=== PATIENT | female | born 1990 | race Caucasian/White ===

== ENCOUNTER → 2017-12-04 | Outpatient (CLI) | payer OTHER, BC ==
[~2017-12-04] MED LIST: MULT-506 PO
--- NOTE | 2017-12-04 11:51 | DIAGNOSTIC IMAGING REPORT ---
MRI OF LUMBAR SPINE WITHOUT IV CONTRAST CLINICAL HISTORY: Low back pain. COMPARISON STUDY: No priors. TECHNIQUE: MRI of the lumbar spine is performed utilizing various T1 and T2-weighted sequences in the axial and sagittal planes. IV contrast was not administered for this examination. FINDINGS: Lumbar spine: Vertebral body height and alignment are maintained throughout the lumbar spine. Normal marrow signal intensity is preserved throughout the visualized bony structures. The transverse and spinous processes appear intact. There is no evidence of spondylolysis. Mild hyperlordosis is observed. Intervertebral discs: There is mild degenerative disc desiccation and loss of height at L5-S1. The remaining discs are normal in height and signal intensity. Spinal cord: The visualized spinal cord is normal in morphology and signal intensity. The conus medullaris terminates at the L1-L2 interspace. The nerve roots of the cauda equina are normal in appearance. L1-L2: Unremarkable. L2-L3: Unremarkable. L3-L4: Mild facet arthropathy is of no consequence. The central canal and neural foramina are patent. L4-L5: Mild facet arthropathy is of no consequence. The central canal and neural foramina are patent. L5-S1: The central canal and neural foramina are patent. Facet arthropathy is of no consequence. There is an anterior disc protrusion seen on the sagittal sequences. Sacrum: The visualized sacrum is normal in morphology and signal intensity. Soft tissues: The paraspinous soft tissues are normal in appearance. The visualized retroperitoneal structures are grossly unremarkable but incompletely assessed. IMPRESSION: 1. There is no disc herniation, central canal stenosis, or neural foraminal narrowing seen throughout the lumbar spine. 2. Anterior disc protrusion is noted at L5-S1. 3. Mild facet arthropathy is seen in the lower lumbar region. 4. No destructive bony process is identified. Dictated: 12/04/2017 10:43 AM Transcribed: 12/04/2017 11:51 AM [email or web address] Electronically signed by: Neto Lobato M.D. 12/04/2017 11:57 AM Dictated Date/Time: 12/04/2017 10:43 AM
== END | disposition home or self-care (01) ==
LOC: C.MRI 09:55
PROVIDERS: ATTEND Orthopaedic Surgery Orthopaedic Surgery of the Spine
DX: M51.27 Other intervertebral disc displacement, lumbosacral region (principal)